=== PATIENT | female | born 1945 | race Caucasian/White ===

== ENCOUNTER 2023-09-24 16:24 | Emergency (ER) | payer BC, MEDICARE ==
[2023-09-24 16:30] VITALS: TEMP 98.7
[2023-09-24] MEDS: ketorolac tromethamine 15mg/ml inj. IM ONE (18:03)
[2023-09-24 18:16] VITALS: BP 169/81; PULSE 52; RESP 16; O2SAT 96
== END 2023-09-24 18:19 | disposition home or self-care (01) ==
LOC: ER 16:25
DX: M25.562 Pain in left knee (principal); Z88.5 Allergy status to narcotic agent
CPT/HCPCS: 73564; 96372; 99283; J1885